=== PATIENT | female | born 1980 | race Caucasian/White ===

== ENCOUNTER 2018-01-19 12:45 | Emergency (ER) | payer BC ==
[2018-01-19 13:29] LABS: ADD MAN DIFF? NO
[2018-01-19 13:35] LABS: WHITE BLOOD COUNT 7.6 10^3/ul (4.8-10.8)
[2018-01-19 13:35] LABS: BASOPHILS % 0.3 % (0.0-2.0); EOSINOPHILS # 0.1 10^3/ul (0.0-0.5); EOSINOPHILS % 0.9 % (0.0-7.0); HEMATOCRIT 35.2 % (37.0-47.0); LYMPHOCYTES # 1.6 10^3/ul (0.8-2.9); LYMPHOCYTES % 21.4 % (15.0-51.0); MEAN CORPUSCULAR HEMOGLOBIN 29.9 pg (29.0-33.0); MEAN CORPUSCULAR HGB CONC 34.1 g/dl (32.0-37.0); MEAN CORPUSCULAR VOLUME 87.6 fl (82.0-101.0); MEAN PLATELET VOLUME 11.3 fl (7.4-10.4); MONOCYTE # 0.5 10^3/ul (0.3-0.9); MONOCYTES % 6.4 % (0.0-11.0); NEUTROPHIL # 5.4 10^3/ul (1.6-7.5); NEUTROPHILS % 70.7 % (39.0-77.0); PLATELET COUNT 192 10^3/UL (140-415); RED BLOOD COUNT 4.02 10^6/ul (4.20-5.40); RED CELL DISTRIBUTION WIDTH 13.1 % (11.5-14.5)
[2018-01-19] MEDS: SOD CHLORIDE 0.9% 1,000 ML IV (13:41)
[2018-01-19] MEDS: ONDANSETRON 4 MG INJ IV (13:41)
[2018-01-19] MEDS: morphine 4 MG/ML VIAL IV (13:41)
[2018-01-19 13:58] LABS: ANION GAP 15 (8-16); BLOOD UREA NITROGEN 12 mg/dl (7-20); CALCIUM 10.9 mg/dl (8.4-10.2); CARBON DIOXIDE 23 mmol/L (21-31); CHLORIDE 107 mmol/L (97-110); CREATININE 0.58 mg/dl (0.44-1.00); GLUCOSE 87 mg/dl (70-220); POTASSIUM 4.2 mmol/L (3.5-5.1); SODIUM 141 mmol/L (135-144)
[2018-01-19 14:09] LABS: TROPONIN-I < 0.010 ng/ml (0.000-0.120)
[2018-01-19] MEDS: SOD CHLORIDE 0.9% 100 ML (14:31)
[2018-01-19] MEDS: IOHEXOL 100 ML (14:31)
== END 2018-01-19 15:17 | disposition home or self-care (01) ==
LOC: E/R 12:45
DX: N64.4 Mastodynia (principal); R06.00 Dyspnea, unspecified; R07.9 Chest pain, unspecified; R40.2142 Coma scale, eyes open, spontaneous, at arrival to emergency department; R40.2252 Coma scale, best verbal response, oriented, at arrival to emergency department; R40.2362 Coma scale, best motor response, obeys commands, at arrival to emergency department; Z85.3 Personal history of malignant neoplasm of breast; Z85.830 Personal history of malignant neoplasm of bone
CPT/HCPCS: 36415; 71275; 80048; 81025; 84484; 85025; 93971; 96374; 96375; 99285-25

== ENCOUNTER 2018-01-19 22:40 | Emergency (ER) | payer BC ==
[2018-01-19] MEDS: HYDROCODONE/APAP (10/325) TAB PO (23:28)
[2018-01-19] MEDS: ONDANSETRON (ODT) 4 MG TAB ODT (23:28)
== END 2018-01-20 00:08 | disposition home or self-care (01) ==
LOC: E/R 01-20 00:08
DX: C79.51 Secondary malignant neoplasm of bone (principal); Z85.3 Personal history of malignant neoplasm of breast
CPT/HCPCS: 93005; 99284-25